=== PATIENT | female | born 1985 | race Caucasian/White ===

== ENCOUNTER 2018-02-01 10:33 | Emergency (ER) | payer OTHER ==
[2011-11-26 06:50] VITALS: BMI 26.5
[2018-02-01 11:17] LABS: BASOPHILS 0.2 % (0-2); EOSINOPHILS 1.5 % (0-7); HEMATOCRIT 44.4 % (36.0-48.0); HEMOGLOBIN 15.4 g/dL (12-16); IMMATURE GRANULOCYTES 0.2 % (0-5); LYMPHOCYTES 27.4 % (15-50); MCH 33.8 pg (26.0-34.0); MCHC 34.7 g/dL (31.0-37.0); MCV 97.4 fL (80.0-100.0); MEAN PLATELET VOLUME 9.7 fL (7.4-10.4); MONOCYTES 5.1 % (2-11); NEUTROPHILS 65.6 % (40-80); PLATELET COUNT 164 10x3/uL (130-400); RBC 4.56 10x6/uL (4.00-5.40); RDW 12.2 % (11.5-14.5); WBC 5.8 10x3/uL (4.8-10.8)
[2018-02-01 11:33] LABS: ALBUMIN 3.6 g/dL (3.4-5.0); ALKALINE PHOSPHATASE 68 U/L (46-116); ALT (SGPT) 36 U/L (10-68); BILIRUBIN - TOTAL 0.56 mg/dL (0.2-1.3); CALC OSMOLALITY 277 mosm/kg (275-300); CARBON DIOXIDE 24.6 mmol/L (21.0-32.0); CHLORIDE - SERUM 105 mmol/L (98-107); CREATININE - SERUM 0.7 mg/dL (0.6-1.3); GLUCOSE 94 mg/dL (74-106); POTASSIUM - SERUM 4.2 mmol/L (3.5-5.1); PROTEIN - SERUM 7.3 g/dL (6.4-8.2); SODIUM 139 mmol/L (136-145); UREA NITROGEN 13 mg/dL (7-18); eGFR NON AFRICAN AMERICAN > 90 mL/min (90-120)
[2018-02-01 11:45] LABS: CHOLESTEROL, TOTAL 179 mg/dL (0-200); CKMB 0.1 U/L (0.0-3.6); CREATINE KINASE 53 UL (21-215); HDL CHOLESTEROL 30 mg/dL (32-96); LDL CHOLESTEROL 134 mg/dL (0-100); LDL-HDL RATIO 4.5 ratio (1.5-3.5); THYROID STIMULATING HORMONE 0.25 uIU/mL (0.36-3.74); TRIGLYCERIDE 79 mg/dL (30-200)
[2018-02-01 11:47] LABS: TROPONIN-I < 0.017 ng/mL (0.000-0.060)
== END 2018-02-01 12:50 | disposition home or self-care (01) ==
LOC: D.ER 10:33
PROVIDERS: Family Medicine
DX: R07.89 Other chest pain (principal); E05.80 Other thyrotoxicosis without thyrotoxic crisis or storm; F41.9 Anxiety disorder, unspecified